=== PATIENT | female | born 1965 | race Caucasian/White ===

== ENCOUNTER → 2019-04-18 | Outpatient (CLI) | payer OTHER ==
[~2019-04-18] MED LIST: AUGM875T28 PO; CO Q100C10 PO; HYDR-2807 PO; MOME50SP; MULT1TAB10 PO; NORV5TAB PO; OCEA0.654; OCUVTAB PO; POLYOPD OU; PROT1TAB2 PO; PROZ40CA PO; ZYRT10CA5 PO; [UNRECOGNIZED DRUG - CODE] PO
--- NOTE | 2019-04-23 19:20 | SLEEPHOME ---
DATE OF PROCEDURE: 04/18/2019 ORDERED BY: Dr. Juan Mena Diagnostic home sleep testing was performed due to concern for the obstructive sleep apnea syndrome in this patient with narcolepsy and progressive increasing somnolence who has comorbidities of hypertension. For testing a nocturnal T3 respiratory monitoring device was used. Continuous record was made of pulse oxygen saturation airflow, chest, abdominal strain and body position. 9 hours and 59 minutes of data were reviewed. There were 6 hours and 50 minutes marked as time in bed. During the interval marked time in bed there were 101 respiratory events identified of 10 seconds in duration or greater for a respiratory event index of 14.8. The events were primarily obstructive. Baseline pulse rate 81, pulse rate ranged 22 to 171, baseline saturation 93%. Saturations fell as low as 81%. Testing was performed in both the supine and nonsupine positions. IMPRESSION: Abnormal home sleep testing with repetitive respiratory events and oxygen desaturations to 81% with a respiratory event index of 14.8 per hour is consistent with the obstructive sleep apnea syndrome. RECOMMENDATIONS: The patient should be encouraged to undergo formal sleep evaluation and laboratory pressure titration.
== END ==
LOC: M SLEEP HO 12:55
PROVIDERS: ATTEND Internal Medicine Pulmonary Disease
DX: G47.33 Obstructive sleep apnea (adult) (pediatric) (principal)

== ENCOUNTER → 2019-07-13 | Outpatient (CLI) | payer OTHER ==
--- NOTE | 2019-07-17 14:39 | SLEEPCENT ---
DATE OF PROCEDURE: 07/13/2019 ORDERING PROVIDER: Dr. Mena, copy to Dr. Meza. INTERPRETATION: Nocturnal polysomnography was performed for the titration of pressure therapy in this patient with a history of narcolepsy found to have obstructive sleep apnea syndrome on home testing with a respiratory event index of 14.8. For testing the patient was fit with a ResMed AirFit nasal mask of small size, 4 cm of water pressure applied to the circuit and the lights were extinguished. 6 hours and 36 minutes of data were reviewed. There were 343 minutes of sleep identified. Sleep latency was normal at 15.5 minutes. REM latency was mildly delayed at 167 minutes. Sleep architecture was fairly good with two REM cycles. Overall sleep efficiency 87.7%. The patient's electrocardiogram showed a sinus rhythm with an average heart rate of 70 beats per minute. EEG showed some mild coarsening in background possibly some alpha intrusion into non-REM stages. Respiratory events were best palliated with CPAP of pressure of +6. There were scattered limb movements noted but no trains of events. Limb movement arousal index of 7. IMPRESSION: Obstructive sleep apnea syndrome (G47.33) RECOMMENDATIONS: Nightly use of pressure therapy 6 cm of water.
== END ==
LOC: M SLEEP 20:00
PROVIDERS: ATTEND Internal Medicine Pulmonary Disease
DX: G47.33 Obstructive sleep apnea (adult) (pediatric) (principal)

== ENCOUNTER → 2020-01-24 | Outpatient (CLI) | payer OTHER ==
[2020-01-24 16:18] LABS: FOLLICLE STIMULATING HORMONE 109.7 mIU/mL; LUTEINIZING HORMONE 57.7 mIU/mL
== END ==
LOC: M PLALAB 13:40
PROVIDERS: ATTEND Obstetrics & Gynecology
DX: N91.4 Secondary oligomenorrhea (principal)

== ENCOUNTER → 2020-01-24 | Outpatient (CLI) | payer OTHER ==
--- NOTE | 2020-01-24 15:24 | REP ---
PELVIC SONOGRAPHY: HISTORY: Secondary oligomenorrhea. FINDINGS: Transabdominal and transvaginal scanning are performed. Uterine dimensions are normal measured at 6.9 x 4.0 x 4.3 cm. Endometrial echo 0.8 cm thick. The uterus is retroverted. There is a hypoechoic somewhat heterogeneous area in the posterior uterus 1.7 cm in greatest diameter consistent with a fibroid. There is a tiny sliver of fluid adjacent to the uterus in the cul-de-sac. There is a 1.8 x 1.5 x 1.2 cm cyst in the right ovary. The right ovary measures 2.4 x 1.7 x 1.7 cm. The left ovary could not be visualized either transabdominally or transvaginally. No left adnexal mass is seen. IMPRESSION: Small uterine fibroid posterior uterine myometrium 1.7 cm in diameter. There is a 1.8 cm simple cyst in the right ovary. Left ovary could not be identified but no left adnexal mass lesion is seen.
== END ==
LOC: M WHC 13:01
PROVIDERS: ATTEND Obstetrics & Gynecology
DX: N91.4 Secondary oligomenorrhea (principal)

== ENCOUNTER → 2020-04-27 | Outpatient (CLI) | payer OTHER ==
[~2020-04-27] MED LIST changes: +ALL10TAB29 PO; +MULTCAP PO; +TRAM50TA2 PO; +VITAD1000T PO
== END ==
LOC: M LABSMTC 10:10
PROVIDERS: ATTEND Anesthesiology
DX: Z03.818 Encounter for observation for suspected exposure to other biological agents ruled out (principal); Z11.59 Encounter for screening for other viral diseases
CPT/HCPCS: C9803; U0003

== ENCOUNTER 2020-04-30 10:43 | Day surgery (SDC) | payer OTHER ==
[~2020-04-30] VITALS: Ht 157.5 cm; Wt 90.2 kg
[~2020-04-30 10:43] MED LIST changes: +LR 1,000 ML IV ONE; +ceFAZolin SOD 1 GM in D5W MINI-BAG PLUS 50 ML IV ONE
[2020-04-30] MEDS ORDERED: fentaNYL 100 MCG/2 ML INJECTION (J3010) As Ordered ONE (11:27)
[2020-04-30] MEDS ORDERED: KETOROLAC 60 MG/2 ML VIAL As Ordered ONE (11:27)
[2020-04-30] MEDS ORDERED: dexameTHASONE 4 MG/ML 1ML VIAL (J1100 PER 1MG) As Ordered ONE (11:27)
[2020-04-30] MEDS ORDERED: ONDANSETRON 4MG/2ML VIAL As Ordered ONE (11:27)
[2020-04-30] MEDS ORDERED: propofoL 200 MG/20 ML VIAL As Ordered ONE ×2 (11:27→12:25)
[2020-04-30] MEDS ORDERED: LIDOCAINE 2% 100MG/5ML SDV (FOR ANES.) As Ordered ONE ×2 (11:27→13:03)
[2020-04-30] MEDS ORDERED: MIDAZOLAM INJ 2MG/2ML VIAL (J2250 PER 1MG) As Ordered ONE (11:27)
[2020-04-30] MEDS ORDERED: HYDROmorphone HCL 2 MG/ML 1ML VIAL (J1170) As Ordered ONE (12:34)
[2020-04-30] MEDS ORDERED: ePHEDrine SULFATE 25 MG/5 ML(5MG/ML) SYRINGE As Ordered ONE (12:38)
[2020-04-30] MEDS ORDERED: ROCURONIUM BROMIDE 50 MG/5 ML VIAL As Ordered ONE (13:03)
[2020-04-30] MEDS ORDERED: oxyCODONE 5MG TAB PO PRN (13:15)
[2020-04-30] MEDS ORDERED: fentaNYL 100 MCG/2 ML INJECTION (J3010) IV PRN (13:15)
[2020-04-30] MEDS ORDERED: ONDANSETRON 4MG/2ML VIAL IV PRN (13:15)
[2020-04-30] MEDS ORDERED: HYDROMORPHONE HCL 0.5 MG/ 0.5 ML SYRINGE (J1170 PER 1) IV PRN (13:15)
[2020-04-30] MEDS ORDERED: LR 1,000 ML IV SCH ×2 (13:15)
[2020-04-30] MEDS ORDERED: IBUPROFEN 600MG TAB PO PRN (13:15)
[2020-04-30 14:55] VITALS: BP 135/65
--- NOTE | 2020-05-05 12:50 | RO ---
DATE OF PROCEDURE: 04/30/2020 PREOPERATIVE DIAGNOSES/INDICATION FOR SURGERY: Postmenopausal bleeding with abnormal ultrasound. POSTOPERATIVE DIAGNOSES: Postmenopausal bleeding with abnormal ultrasound with endometrial polyps. PROCEDURE: Dilation and curettage (D and C), hysteroscopy, MyoSure resection of polyps and endometrium. SURGEON: Tracy Hopper MD PIECE WORKER: No research assistant was necessary for this case. ANESTHESIA: Laryngeal mask airway (LMA). SPECIMEN: Endometrium and polyps. BRIEF DESCRIPTION OF PROCEDURE AND FINDINGS: Nisha was brought to the operating room where sufficient LMA anesthesia was induced, and she was prepped, draped and positioned in the usual sterile fashion. The cervix was grasped with a single-tooth tenacula and carefully dilated in order to allow introduction of the MyoSure hysteroscope. This was used to visualize the endometrial cavity, which was overall very atrophic as expected in this postmenopausal woman with a couple lingular polyps and fairly long narrow polyps which were readily resected using the REACH MyoSure device. They were removed in their entirety. We took photos to document before and after, and of course curettage was also carried out, and then the procedure was ended. Estimated blood loss for the procedure about 1 mL. Fluid replacement was crystalloid. Complications none. Condition/Disposition: Nisha tolerated the procedure well and was recovering in the recovery room in good condition.
== END 2020-04-30 15:13 | disposition home or self-care (01) ==
LOC: M SDC 10:43
PROVIDERS: ATTEND Obstetrics & Gynecology
DX: N95.0 Postmenopausal bleeding (principal); N84.0 Polyp of corpus uteri; I10 Essential (primary) hypertension; M79.7 Fibromyalgia; G47.30 Sleep apnea, unspecified; K21.9 Gastro-esophageal reflux disease without esophagitis; Z79.899 Other long term (current) drug therapy; Z88.2 Allergy status to sulfonamides; Z88.1 Allergy status to other antibiotic agents; F41.9 Anxiety disorder, unspecified
CPT/HCPCS: 58558; 88304; J0690; J1100; J1170; J1885; J2250; J2405; J3010

== ENCOUNTER → 2021-07-15 | Outpatient (CLI) | payer BC ==
[~2021-07-15] MED LIST changes: -ALL10TAB29 PO; +CETI-24 PO; +D31000TA2 PO; -HYDR-2807 PO; +HYDR-4433 PO; -LR 1,000 ML IV ONE; -VITAD1000T PO; -ceFAZolin SOD 1 GM in D5W MINI-BAG PLUS 50 ML IV ONE
--- NOTE | 2021-07-15 09:03 | REP ---
INDICATION: AAA COMPARISON: None. TECHNIQUE: Real time ortez scale ultrasound examination using curved array transducer. FINDINGS: The abdominal aorta is normal by sonographic evaluation without evidence for aneurysm. Proximal aorta: 2.0 x 2.0 cm Aorta at renal arteries: 1.8 x 2.0 cm Mid aorta: 1.7 x 1.8 cm Distal aorta: 1.4 x 1.7 cm Iliac arteries are not evaluated due to overlying bowel gas. IMPRESSION: Normal abdominal aorta. No aneurysm. <Electronically signed by Alexis Holt > 07/15/21 [id number]
== END ==
LOC: M RAD 08:33
PROVIDERS: ATTEND Internal Medicine
DX: I71.4 Abdominal aortic aneurysm, without rupture (principal)

== ENCOUNTER → 2021-11-22 | Outpatient (CLI) | payer BC ==
[~2021-11-22] MED LIST changes: +THERTAB52 PO; +VITATAB73 PO
== END ==
LOC: M LABSMTC 13:23
PROVIDERS: ATTEND Anesthesiology
DX: Z01.818 Encounter for other preprocedural examination (principal); Z11.52 Encounter for screening for COVID-19

== ENCOUNTER 2021-11-26 08:14 | Day surgery (SDC) | payer BC ==
[~2021-11-26] VITALS: Ht 157.5 cm; Wt 86.5 kg
[~2021-11-26 08:14] MED LIST changes: +LIDOCAINE 2% 100MG/5ML SDV (FOR ANES.) As Ordered ONE; +NS 1,000 ML IV ONE; +propofoL 200 MG/20 ML VIAL As Ordered ONE
[2021-11-26 09:45] VITALS: BP 133/70
== END 2021-11-26 10:00 | disposition home or self-care (01) ==
LOC: M OPP 08:14
PROVIDERS: ATTEND Internal Medicine Gastroenterology
DX: Z12.11 Encounter for screening for malignant neoplasm of colon (principal); Z83.71 Family history of colonic polyps; K64.8 Other hemorrhoids; Z79.891 Long term (current) use of opiate analgesic; Z79.899 Other long term (current) drug therapy; Z88.1 Allergy status to other antibiotic agents; Z88.2 Allergy status to sulfonamides; Z80.43 Family history of malignant neoplasm of testis

== ENCOUNTER → 2023-06-29 | Outpatient (CLI) | payer BC ==
[~2023-06-29] MED LIST changes: -D31000TA2 PO; +DEXT10CA PO; +GASTROGRAFIN SOLUTION 30ML As Ordered ONE; +ISOVUE-370 76% 100ML VIAL As Ordered ONE; -LIDOCAINE 2% 100MG/5ML SDV (FOR ANES.) As Ordered ONE; -MOME50SP; +NASO50SP3; -NS 1,000 ML IV ONE; +VITA100093 PO; -[UNRECOGNIZED DRUG - CODE] PO; -propofoL 200 MG/20 ML VIAL As Ordered ONE
== END ==
LOC: M RAD 09:29
PROVIDERS: ATTEND Internal Medicine
DX: R10.13 Epigastric pain (principal)
CPT/HCPCS: 74177; Q9963; Q9967

== ENCOUNTER → 2023-10-28 | Outpatient (REF) | payer BC ==
[~2023-10-28] MED LIST changes: -GASTROGRAFIN SOLUTION 30ML As Ordered ONE; -ISOVUE-370 76% 100ML VIAL As Ordered ONE
== END ==
LOC: M LAB REF 17:16
PROVIDERS: ATTEND Physician Assistant Medical
DX: B34.9 Viral infection, unspecified (principal)

== ENCOUNTER → 2023-11-30 | Outpatient (CLI) | payer BC | LOC: M WUC 10:45 | PROVIDERS: ATTEND Physician Assistant | DX: J01.90 Acute sinusitis, unspecified (principal) ==

== ENCOUNTER → 2024-08-12 | Outpatient (CLI) | payer BC, OTHER ==
[~2024-08-12] MED LIST changes: -DEXT10CA PO; +ZOMI5SPR PO
[2024-08-12 19:25] LABS: ALBUMIN 4.3 G/DL (3.2-5.2); BILIRUBIN,TOTAL 0.4 MG/DL (0.3-1.2); CALCIUM LEVEL 9.8 MG/DL (8.5-10.1); CHOLESTEROL RISK RATIO 2.2 (<5); CREATININE FOR GFR 1.13 MG/DL (0.55-1.30); GLOMERULAR FILTRATION RATE 52.6 (>51); HDL CHOLESTEROL 140.9 MG/DL (>40); LDL CHOLESTEROL 143.9 MG/DL (<100); NON-HDL-C 169.1 MG/DL; TOTAL PROTEIN 7.3 G/DL (5.7-8.2)
== END ==
LOC: M WUC 15:33
PROVIDERS: ATTEND Internal Medicine
DX: E78.2 Mixed hyperlipidemia (principal)